=== PATIENT | male | born 1945 | race Caucasian/White ===

== ENCOUNTER 2021-08-28 09:48 | Day surgery (SDC) | payer OTHER, SELFPAY ==
[2021-08-26 12:23] VITALS: BMI 36.5
[2021-08-28] VITALS (9 sets, daily range): BP systolic 132–189; BP diastolic 71–98; PULSE 53–66; RESP 13–19; TEMP 36.1–36.6; O2SAT 95–99; BMI 36.5
--- NOTE | 2021-08-28 12:45 | PM.PREOP ---
Pre-operative Note COVID-19 COVID-19 status: Negative Result date/Date tested (Pos, Neg/Pending): 08/25/21 Criteria for continued procedure: Delay expected to result in less-positive ultimate med/surg outcome and Non-surgical alternatives not available or appropriate per current SOC Interval Note History & Physical reviewed/Exam performed by Physician: Yes Changes to H&P: No
--- NOTE | 2021-08-28 12:50 | SUR.OPER ---
Lithotomy on padded OR bed, head on pillow, arms secured on padded arm boards at <90 degrees abduction. Legs secured in padded yellow fins stirrups.
[2021-08-28] MEDS: CEFAZOLIN 2 GM/20 ML SYRINGE IV (13:20)
--- NOTE | 2021-08-28 14:10 | P.OP_ITS ---
Procedure & Clinicians Procedure: Cystoscopy with left stent placement Same procedure as scheduled: Yes Indications: This is a 76-year-old male who presented with a history of stones and complaints consistent with potential stone through imaging was found to have a distal cm stone on the left side. He presents this time for cystoscopy left stent placement possible left ureteroscopy. Given the patient's history of prostate cancer and previous interventions I am suspicious that we may not be able to access the stone today and therefore stent will be left. Surgeon: Rahat Can Click Yes if Unassisted: Yes Anesthesia Type: General Operative Notes Findings: Urethral normal to the sphincter which is well coapted. The prostate surgically absent. There is a tight bladder neck contracture and a stiffened and or fixed bladder neck. Left ureteral orifices and right ureteral orifice or in normal position for post prostatectomy. Both had clear efflux. The bladder exhibits severe trabeculation there were no mucosal lesions the there were some varicosities on the bladder floor. The ureter had some degree of J hooking and was somewhat tight. As we noted in the procedure I was able to manipulate with the aid of an angled Glidewire and [place] catheter high wire into the ureter and then up past the stone allowing stent placement. A 7 Malawian multi length stent was left in good position without a string. No other abnormalities were noted. Closure Type: not applicable Specimen(s): none sent Applied: other (Left ureteral stent (7 Malawian by multi length)) Estimated Blood Loss (mL): 0 Blood products transfused: none Procedure in detail: After informed consent was obtained, the patient was identified, and brought to the operating room worries placed in a supine position on the table. Patient then had anesthesia induced and maintained. After ensuring an adequate level of anesthesia the patient was transitioned to the lithotomy position. The patient was then prepped, draped, prepared for transurethral procedure in a sterile fashion. After prepping draping and assuring an adequate level of anesthesia a 21 Malawian cystoscope was passed through the urethra to the level of the bladder neck. This was stiff and on did just except the scope through the scope had to be turned sideways because of the ovoid contracted shape of the bladder neck. Once within the bladder was drained and then cystoscopy was performed the ureteral orifices were identified. Then with some significant maneuvering and again the use of an angled Glidewire and [place] catheter was able to access the ureter and manipulate the [place] and Glidewire past the stone and up and into the collecting system. The ureteral orifice was tight. With the folic and Glidewire in the color upper collecting system the Glidewire was removed and a standard wire was passed up into the [place] the [place] was backed out. Stent was then passed over the wire in a coaxial fashion position in the renal pelvis under fluoroscopic visualization of the bladder under direct vision. The grasping forceps was inserted and the nylon harness was removed. The stent was once again visualized via the fluoroscopeand found to be in good position. With this done the bladder was drained the scope was removed the patient was awakened and taken to the postanesthesia care unit having tolerated the procedure well. There were no complications the patient will follow up my office in 10-14 days with a KUB. Complications: none Post-operative Condition: stable Disposition: PACU Plan for aftercare: Discharged to home follow-up my office 10-14 days with KUB.
--- NOTE | 2021-08-28 14:10 | DI.RAD.S_ITS ---
PROCEDURE: XR ABDOMEN 1V INDICATIONS: STENT PLACEMENT TECHNIQUE: One intraoperative fluoroscopic view of the abdomen acquired. COMPARISON: None. FINDINGS: Intraoperative fluoroscopic view of left abdomen shows left-sided ureteral stent in place. IMPRESSION: Fluoro guidance was provided intraoperatively for left-sided ureteral stent placement. Dictated by: Andrea Sutherland M.D. on 08/28/2021 at 16:17 Approved by: Andrea Sutherland M.D. on 08/28/2021 at 16:18
== END 2021-08-28 15:40 | disposition home or self-care (01) ==
PROVIDERS: Family Provider Student in an Organized Health Care Education/Training Program; PCP Student in an Organized Health Care Education/Training Program; Referring Provider Urology; Visit Provider Urology
PROC: (CPT 52332; principal; 2021-08-28 11:45)
DX: N20.1 Calculus of ureter (principal); Z85.46 Personal history of malignant neoplasm of prostate; Z79.01 Long term (current) use of anticoagulants; Z92.3 Personal history of irradiation; N32.0 Bladder-neck obstruction
CPT/HCPCS: 52332; 74018; 76000; J0690; J2704; J3010

== ENCOUNTER 2021-09-26 09:42 | Day surgery (SDC) | payer OTHER, SELFPAY ==
[2021-09-25 08:44] VITALS: BMI 36.5
[2021-09-26] VITALS (10 sets, daily range): BP systolic 157–179; BP diastolic 81–92; PULSE 52–64; RESP 10–24; TEMP 36.2–36.6; O2SAT 97–99; BMI 36.5
[2021-09-26] MEDS: LACTATED RINGERS 1,000 ML 42 ML IV (10:51)
--- NOTE | 2021-09-26 11:28 | PM.PREOP ---
Pre-operative Note COVID-19 COVID-19 status: Negative Result date/Date tested (Pos, Neg/Pending): 09/23/21 Criteria for continued procedure: Expected advancement of disease process, Continuing or worsening of significant or severe pain and Non-surgical alternatives not available or appropriate per current SOC Interval Note History & Physical reviewed/Exam performed by Physician: Yes Changes to H&P: No
[2021-09-26] MEDS: CEFAZOLIN 2 GM/20 ML SYRINGE IV (12:11)
--- NOTE | 2021-09-26 12:26 | SUR.OPER ---
Lithotomy on padded OR bed, head on pillow, arms secured on padded arm boards at <90 degrees abduction. Legs secured in padded yellow fins stirrups.
--- NOTE | 2021-09-26 13:24 | PM.OP.1 ---
Procedure & Clinicians Procedure: Left ureteroscopy with laser lithotripsy, left stent removal and left stent placement, irrigation of stone fragments Same procedure as scheduled: Yes Indications: This 76-year-old male with a known distal left 9 mm ureteral stone presents for definitive treatment of this stone. He had been in the operating room previously but because of his previous prostatectomy, radiation therapy, fixed bladder neck and history of bladder neck contracture as well as rigidity of the distal left ureter a stent was placed and things were allowed to ?soften and dilate ?. And again he presents this time to definitively treat his stone. Surgeon: Rahat Can Click Yes if Unassisted: Yes Anesthesia Type: General Operative Notes Findings: Urethra normal to the proximal bulbar urethra bladder neck and anastomosis. This was more widely patent than at his last attempt. In the scope was able to pass through. It still was fixed and somewhat rigid. The ureteral orifice was more dilated and perhaps slightly more pliable but it also was still somewhat stiff. The stone was noted in the distal ureter approximately 4-5 cm above the ureteral orifice. The stone was fragmented to laser to smaller fragments. And as many as could be were washed out. Because of the rigidity and difficulty with access and the fact that it was too close to the ureteral orifice to affectively allow the use of ureteral access sheath the stones were fragmented as small as possible to facilitate passage given the basketing was not practical. A 7 Qatari by multi length stent was left in good position in the left collecting system without a string. There were no other abnormalities are notable anatomic findings. Closure Type: not applicable Specimen(s): other (Stone dust and small fragments) Prosthetic devices, grafts, tissues, transplants, or devices: Left ureteral stent 7 Qatari by multi length with the string removed Estimated Blood Loss (mL): 0 Blood products transfused: none Procedure in detail: After informed consent was obtained, the patient was identified, and brought to the operating room. The patient was placed in a supine position on the table and anesthesia was induced and maintained. After ensuring an adequate level of anesthesia the patient was transitioned to the lithotomy position. He was then prepped, draped, prepared for transurethral procedure in a sterile fashion. After prepping, draping and assuring an adequate level of anesthesia a 21 Qatari cystoscope was passed through the urethra and bladder neck under direct vision. The stent was identified after cystoscopy was performed and grasped with a grasping forceps and brought out to the urethral meatus. The guidewire was then passed up the stent and into the collecting system under fluoroscopic visualization. The stent was backed out and a dual lumen access catheter was passed over the wire. A 2nd wire was passed up and into the collecting system. The dual lumen catheter was then backed out. Two wires were 1 wire was reserved for safety wire and the other used for working wire. An attempt was made to pass the semi-rigid scope over the wire but the bladder neck was too rigid to allow comfortable access. The flexible ureteral scope was then passed over the wire and up to the level of the stone. The laser fiber was inserted and laser energy applied to the stone fragmenting it sequentially. This continued until the stone fragments were as small as possible. The scope was then passed up above the area fragmentation in the ureter and no further stones or large fragments were noted. Again the ureter was visualized brain this the scope out and no large fragments appeared to remain. The of the fluoroscope the stone appeared again also well fragmented and no large fragments were identified. With the ureteral scope out the safety wire was backloaded to the cystoscope which was inserted and the new stent passed over the wire and into the collecting system under fluoroscopic visualization in the upper pole and under direct vision in the bladder. The stent was thus position. Grasping forceps was then started in the stent grasped with a nylon heart is removed. The scope was once again reinserted in the bladder drained. The patient was awakened and taken to the postanesthesia care unit having tolerated the procedure well there were no complications. Complications: none Post-operative Condition: stable Disposition: PACU Plan for aftercare: Patient to follow-up my office in 10-14 days with a KUB. Patient is to strain his urine and save any fragments and bring them to follow-up.
--- NOTE | 2021-09-26 15:58 | SUR.PHASEII ---
Pt unable to void , pt bladder scanned with 200cc in bladder. Pt given a fluid challenge via IV 500cc and pt drank 1100 cc
--- NOTE | 2021-09-26 17:26 | SUR.PHASEII ---
1640 placed a dunham and gave pt instructiions on how to care for catheter and screens to use to screen urine for stone fragments
[2021-10-01 13:03] LABS: Ca oxalate dihydrate 80 % (.); Ca oxalate monohydr 20 % (.); Size 2x2 mm (.)
== END 2021-09-26 17:00 | disposition home or self-care (01) ==
PROVIDERS: Family Provider Student in an Organized Health Care Education/Training Program; PCP Student in an Organized Health Care Education/Training Program; Referring Provider Urology; Visit Provider Urology
PROC: 0TF78ZZ Fragmentation in Left Ureter, Via Natural or Artificial Opening Endoscopic (ICD-10-PCS; CPT 52353; principal; 2021-09-26 11:45)
DX: N20.1 Calculus of ureter (principal); N32.0 Bladder-neck obstruction; G47.33 Obstructive sleep apnea (adult) (pediatric); I48.20 Chronic atrial fibrillation, unspecified; I10 Essential (primary) hypertension; E78.5 Hyperlipidemia, unspecified; Z92.3 Personal history of irradiation; Z85.46 Personal history of malignant neoplasm of prostate; Z79.01 Long term (current) use of anticoagulants; Z87.891 Personal history of nicotine dependence
CPT/HCPCS: 52356; 76000; 82365; J0690; J1100; J1885; J2250; J2405; J2704; J3010

== ENCOUNTER → 2021-09-30 11:10 | Outpatient (CLI) | payer OTHER, SELFPAY | PROVIDERS: Family Provider Student in an Organized Health Care Education/Training Program; PCP Student in an Organized Health Care Education/Training Program; Visit Provider Urology | DX: R30.0 Dysuria (principal) | CPT/HCPCS: 51798; 87086 ==

== ENCOUNTER → 2021-10-09 11:39 | Outpatient (CLI) | payer MEDICARE, OTHER, SELFPAY ==
[2021-10-15 12:36] LABS: Ca oxalate dihydrate 20 % (.); Ca oxalate monohydr 80 % (.); Size 2x1 mm (.)
== END ==
PROVIDERS: Family Provider Student in an Organized Health Care Education/Training Program; PCP Student in an Organized Health Care Education/Training Program; Visit Provider Urology
DX: N20.2 Calculus of kidney with calculus of ureter (principal); N32.0 Bladder-neck obstruction; Z92.3 Personal history of irradiation; Z79.01 Long term (current) use of anticoagulants; Z85.46 Personal history of malignant neoplasm of prostate; Z96.0 Presence of urogenital implants
CPT/HCPCS: 82365; 99212

== ENCOUNTER → 2021-10-22 10:01 | Outpatient (ROUT) | payer MEDICARE, SELFPAY ==
[2021-10-22 10:33] LABS: Appearance Urine UA CLOUDY; Color Urine UA RED
[2021-10-22 10:34] LABS: Culture Indicated Urine Cult Not Indicated; RBC Urine >100/HPF (0-5/HPF); WBC Urine None Seen (0-5/HPF)
[2021-10-22 10:35] LABS: Bacteria Urine None Seen
== END ==
PROVIDERS: Family Provider Student in an Organized Health Care Education/Training Program; PCP Student in an Organized Health Care Education/Training Program; Visit Provider Urology
DX: R30.0 Dysuria (principal)
CPT/HCPCS: 81001

== ENCOUNTER → 2021-10-22 11:03 | Outpatient (CLI) | payer OTHER, MEDICARE, SELFPAY ==
[2021-10-22 11:26] LABS: Add Manual Diff / Slide Review NO; Basophils Absolute Auto 0 /uL (0-100); Basophils Percent Auto 0.7 % (0-2); Eosinophils Absolute Auto 300 /uL (0-450); Eosinophils Percent Auto 4.9 % (2-4); Hematocrit 37.9 % (41-53); Hemoglobin 12.7 g/dL (13.5-17.5); Lymphocytes Absolute Auto 1000 /uL (1100-4500); Lymphocytes Percent Auto 14.6 % (25-40); Mean Corpuscular HGB Conc 33.5 % (30-36); Mean Corpuscular Hemoglobin 29.6 PG (26-34); Mean Corpuscular Volume 88.4 fL (80-100); Monocytes Absolute Auto 800 /uL (0-900); Monocytes Percent Auto 11.6 % (3-14); Neutrophils Absolute Auto 4600 /uL (1500-7000); Neutrophils Percent Auto 68.2 % (50-75); Platelet Count 248 X10^3/uL (150-400); Red Blood Cell Count 4.29 X10^6/uL (4.5-5.9); Red Cell Distribution Width 13.7 % (11.6-14.8); White Blood Cell Count 6.7 X10^3/uL (4.5-11.0)
== END ==
PROVIDERS: Family Provider Student in an Organized Health Care Education/Training Program; PCP Student in an Organized Health Care Education/Training Program; Referring Provider Urology; Visit Provider Urology
DX: R31.0 Gross hematuria (principal); N20.1 Calculus of ureter; R30.0 Dysuria; Z96.0 Presence of urogenital implants
CPT/HCPCS: 36415; 52310; 81001; 85025

== ENCOUNTER → 2021-12-03 14:04 | Outpatient (ROUT) | payer MEDICARE, OTHER, SELFPAY ==
[2021-12-08 08:33] LABS: Ca oxalate dihydrate 20 % (.); Ca oxalate monohydr 75 % (.); Hydroxyapatite 5 % (.); Size 8x4 mm (.)
== END ==
PROVIDERS: Family Provider Student in an Organized Health Care Education/Training Program; PCP Student in an Organized Health Care Education/Training Program; Visit Provider Urology
DX: N20.0 Calculus of kidney (principal)
CPT/HCPCS: 82365

== ENCOUNTER → 2023-12-10 13:53 | Outpatient (CLI) | payer OTHER, SELFPAY ==
--- NOTE | 2023-12-10 13:55 | DI.CT.S_ITS ---
PROCEDURE: CT PEL WO CON INDICATIONS: Bladder/anastomotic calculi TECHNIQUE: Noncontrast 3 mm axial sections acquired through the bony pelvis, with coronal and sagittal reformatting. COMPARISON: None. FINDINGS: Image quality: Excellent. Bones: Osseous structures with multilevel degenerative disc and endplate changes. No suspicious lesions. Hypertrophic degenerative changes anteriorly and inferiorly at the pubic symphysis. Soft tissues: There is radiodensity measuring 0.8 x 1.0 cm at the vesicouretheral junction extending caudally for a length of 1.9 cm. The prostate gland is absent. The urinary bladder is partially distended with normal wall thickness. No intraluminal masses or radiodensity. Distal ureters are nondilated. Partially imaged lower pole nonobstructing calculi in each kidney. Moderate fat containing bilateral inguinal hernias. Moderate sigmoid diverticulosis. Other bowel loops are normal. No suspicious adenopathy. Normal vasculature. Moderate atherosclerotic calcification. IMPRESSION: Calcification as described at the vesicourethral junction. No proximal urinary obstruction. Several nonobstructing intrarenal calculi. Dictated by: Dang Avila M.D. on 12/10/2023 at 16:39 Approved by: Dang Avila M.D. on 12/10/2023 at 16:44
== END ==
PROVIDERS: Family Provider Student in an Organized Health Care Education/Training Program; PCP Student in an Organized Health Care Education/Training Program; Referring Provider Urology; Visit Provider Urology
DX: N21.0 Calculus in bladder (principal); N20.0 Calculus of kidney; K40.20 Bilateral inguinal hernia, without obstruction or gangrene, not specified as recurrent; K80.20 Calculus of gallbladder without cholecystitis without obstruction
CPT/HCPCS: 72192

== ENCOUNTER 2024-01-04 06:07 | Day surgery (SDC) | payer OTHER, SELFPAY ==
[2023-12-29 12:24] VITALS: BMI 38.6
[2024-01-04] VITALS (7 sets, daily range): BP systolic 157–187; BP diastolic 71–95; PULSE 61–73; RESP 15–28; TEMP 36.6–36.9; O2SAT 94–98; BMI 33.6
[2024-01-04] MEDS: LACTATED RINGERS 1,000 ML 21 ML IV (06:57)
--- NOTE | 2024-01-04 07:38 | PM.PREOP ---
Pre-operative Note COVID-19 COVID-19 status: Not tested Interval Note History & Physical reviewed/Exam performed by Physician: Yes Changes to H&P: No
[2024-01-04] MEDS: CIPROFLOXACIN 400 MG/200 ML PIGGYBACK 200 MG IV (07:46)
--- NOTE | 2024-01-04 08:24 | SUR.OPER ---
Lithotomy on padded OR bed, head on pillow, arms secured on padded arm boards at <90 degrees abduction. Legs secured in padded yellow fins stirrups.
--- NOTE | 2024-01-04 09:22 | PM.OP.1 ---
Procedure & Clinicians Procedure: Cystoscopy rigid and flexible with laser lithotripsy of anastomotic calcifications and evacuation of fragments. Same procedure as scheduled: Yes Indications: This 78-year-old male with a history of radical prostatectomy and salvage radiation therapy who has stress incontinence as a result of this was found to have anastomotic calcifications that nearly occlude the lumen. He presents this time for cystoscopy laser lithotripsy and evacuation of stone fragments. Surgeon: Rahat Can Click Yes if Unassisted: Yes Anesthesia Type: General Operative Notes Findings: Urethral meatus is small but normal urethra is normal along its length. At the anastomosis there are calcifications which nearly occlude the lumen. They are pale yellow crystalline and imbedded/adherent to the tissue. There does appear to be upon so scar of the bladder neck remains fixed. Within the bladder the mucosa appears normal and no evidence of tumor. At the end of the procedure all stone material appeared to be removed and evacuated from the bladder. Closure Type: not applicable Specimen(s): other (Stone fragments) Prosthetic devices, grafts, tissues, transplants, or devices: None Estimated Blood Loss (mL): 0 Blood products transfused: none Procedure in detail: Procedure in detail: After informed consent was obtained, the patient was identified brought to the operating room where he was placed in his supine position on the table and anesthesia was induced to maintain. Ensuring an adequate level of anesthesia the patient was transitioned to the lithotomy position where he was prepped and draped in a sterile fashion. After prepping, draping, antibiotics, time-out and ensuring an adequate level of anesthesia a 17 Montenegrin cystoscope was passed through the urethra and to the level of the anastomosis which was occluded by stone. Once there the laser fiber was inserted and the stones were sequentially fragmented and ?dusted?. This required the 17 Montenegrin scope as well as a flexible cystoscope to clear the entire area at the end of the procedure the anastomosis was widely patent. It did appear fixed open as it had been and there did appear to be preponderance of scar tissue under the stone. All fragments were then evacuated from the bladder. The area was inspected for hemostasis which was good the bladder was drained scope was removed and the patient was awakened having tolerated the procedure well to be transferred to the postanesthesia care unit for recovery there were no complications. Complications: none Post-operative Condition: stable Disposition: PACU Plan for aftercare: After recovery the patient will be discharged to home to follow up my office in approximately 14 days with urinalysis.
[2024-01-04] MEDS: OXYCODONE IR 5 MG TABLET PO (09:44)
[2024-01-04] MEDS: ACETAMINOPHEN 325 MG TABLET 650 MG PO (09:45)
[2024-01-04] MEDS: KETOROLAC 30 MG/ML VIAL 15 MG IV (10:35)
[2024-02-04 10:11] LABS: Ca oxalate dihydrate 30 % (.); Ca oxalate monohydr 65 % (.); Hydroxyapatite 5 % (.); Size 3x3 mm (.)
== END 2024-01-04 10:37 | disposition home or self-care (01) ==
PROVIDERS: Family Provider Student in an Organized Health Care Education/Training Program; PCP Student in an Organized Health Care Education/Training Program; Referring Provider Urology; Visit Provider Urology
PROC: (CPT 52353; principal; 2024-01-04 07:45)
DX: N21.0 Calculus in bladder (principal)
CPT/HCPCS: 52353; 82365; J0744; J1100; J1885; J2405; J2704; J3010

== ENCOUNTER → 2024-01-24 10:57 | Outpatient (CLI) | payer OTHER, SELFPAY | PROVIDERS: Family Provider Student in an Organized Health Care Education/Training Program; PCP Student in an Organized Health Care Education/Training Program; Visit Provider Urology | DX: R31.0 Gross hematuria (principal); C61 Malignant neoplasm of prostate; C79.51 Secondary malignant neoplasm of bone | CPT/HCPCS: 51798; 52000; 87077; 87086; 87186; 99213 ==

== ENCOUNTER → 2024-05-16 13:59 | Outpatient (CLI) | payer OTHER, SELFPAY ==
--- NOTE | 2024-05-16 14:01 | DI.NM.S_ITS ---
PROCEDURE: NM IMELDA PERF SPECT R&S PHARM Rest and pharmacological stress myocardial perfusion SPECT with gated imaging and ejection fraction RADIOPHARMACEUTICAL: 27.4 mCi Tc-99m tetrafosmin IV at rest and 25.8 mCi Tc-99m tetrafosmin IV at peak effect of pharmacological stress. [id number] was performed. INDICATIONS: ROBLEDO TECHNIQUE: Radiopharmaceutical was injected at peak stress test, and also at rest. SPECT images were obtained. SPECT myocardial perfusion images were displayed in short axis, horizontal long axis, and vertical long axis views. Gated images were reviewed using CSID software. COMPARISON: None. CARDIAC STRESS: A pharmacologic stress test was performed under the supervision of an attending staff, using an infusion of regadenoson 0.4 mg IV. Hemodynamic data: There is normal blood pressure and heart rate response to pharmacologic stress. Symptoms: The patient denied anginal chest pain. EKG: No diagnostic changes of ischemia; no ectopy. FINDINGS: Raw data: There is good myocardial uptake of radiotracer. No significant motion artifacts. Ohgd-sf-vlllx ratio is 0.28 (normal is less than 0.38 for tetrafosmin tracer). Left ventricle function: Gated images demonstrate normal left ventricular wall thickening. No segmental wall motion abnormalities. No transient ischemic dilation; TID is 1.3 (normal less than 1.3). Left ventricle resting end diastolic volume is 191 mL. Left ventricle stress ejection fraction is 72%; normal range is above 45%. Myocardial perfusion: There is a small size, mild intensity fixed distal lateral wall defect. No reversible perfusion defects. IMPRESSION: Low risk study for ischemia. No reversible perfusion defects. Small size, mild intensity fixed distal lateral wall defect may be consistent with prior small subendocardial infarct. Increased left ventricular size based on calculated left ventricular end-diastolic volume with normal wall motion and function. Dictated by: Chiquis Randall D.O. on 05/18/2024 at 16:21 Approved by: Chiquis Randall D.O. on 05/18/2024 at 16:24
== END ==
PROVIDERS: Family Provider Student in an Organized Health Care Education/Training Program; PCP Student in an Organized Health Care Education/Training Program; Referring Provider Student in an Organized Health Care Education/Training Program; Visit Provider Student in an Organized Health Care Education/Training Program
DX: R06.09 Other forms of dyspnea (principal)
CPT/HCPCS: 78452; 93017; A9502; J2785

== ENCOUNTER → 2024-06-15 11:40 | Outpatient (CLI) | payer OTHER, MEDICARE, SELFPAY | PROVIDERS: Family Provider Student in an Organized Health Care Education/Training Program; PCP Student in an Organized Health Care Education/Training Program; Referring Provider Student in an Organized Health Care Education/Training Program; Visit Provider Student in an Organized Health Care Education/Training Program | DX: R06.09 Other forms of dyspnea (principal); Z87.891 Personal history of nicotine dependence; Z86.16 Personal history of COVID-19; R94.2 Abnormal results of pulmonary function studies | CPT/HCPCS: 94060; 94726; 94729 ==

== ENCOUNTER → 2024-12-04 12:15 | Outpatient (CLI) | payer OTHER, SELFPAY | PROVIDERS: PCP Student in an Organized Health Care Education/Training Program; Visit Provider Urology | DX: R39.9 Unspecified symptoms and signs involving the genitourinary system (principal) | CPT/HCPCS: 87077; 87086; 87186 ==

== ENCOUNTER → 2025-02-22 15:16 | Outpatient (CLI) | payer OTHER, SELFPAY | PROVIDERS: PCP Student in an Organized Health Care Education/Training Program; Visit Provider Urology | DX: N39.3 Stress incontinence (female) (male) (principal); R39.9 Unspecified symptoms and signs involving the genitourinary system | CPT/HCPCS: 87086 ==